=== PATIENT | female | born 1940 | race Caucasian/White ===

== ENCOUNTER 2022-06-10 14:13 | Outpatient (REF) | payer MEDICARE, SELFPAY ==
[2022-06-10 16:28] LABS: MANUAL DIFF FLAG NO
[2022-06-10 17:37] LABS: Basophils Percent Auto 0.4 % (0-2); Eosinophils Absolute Auto 0.1 X10*3/uL (0.0-0.4); Eosinophils Percent Auto 1.1 % (0-4); Hemoglobin 12.4 g/dl (12.0-16.0); Imm Gran Abs Auto 0.02 X10*3/uL (0.00-0.03); Imm Gran Pct Auto 0.3 % (0.0-0.4); Lymphocytes Absolute Auto 1.7 X10*3/uL (1.2-4.9); Mean Corpuscular HGB Conc 31.8 g/dl (31.0-35.0); Monocytes Absolute Auto 0.5 X10*3/uL (0.1-1.2); Monocytes Percent Auto 7.5 % (2-11); Neutrophils Absolute Auto 4.8 x10*3/uL (2.0-8.3); Neutrophils Percent Auto 66.7 % (45-73); Platelet Count 352 X10*3/uL (160-400); Red Blood Count 4.43 X10*6/uL (4.20-5.50); Red Cell Distribution Width 14.6 % (11.0-16.0); White Blood Count 7.2 X10*3/uL (4.8-10.8)
[2022-06-10 18:24] LABS: Erythrocyte Sedimentation Rate 14 MM/HR (0-20)
[2022-06-10 18:36] LABS: Creatinine Urine 51.09 mg/dL; Total Protein Urine Random < 7 mg/dL (<12)
[2022-06-10 18:37] LABS: Alanine Aminotransferase 10 U/L (0-31); Alkaline Phosphatase 95 U/L (39-117); Anion Gap 12 (12-20); Aspartate Amino Transferase 13 U/L (5-31); Bilirubin Total 0.4 mg/dL (0.0-1.0); Blood Urea Nitrogen 18 mg/dL (9-16); C Reactive Protein 0.15 mg/dL (< or = 0.50); Calcium 9.6 mg/dL (8.4-10.2); Carbon Dioxide 31 mmol/L (22-29); Chloride 103 mmol/L (96-108); Estimated Glomerular Filt Rate > 60; Glucose Random 106 mg/dL (60-115); Potassium 4.7 mmol/L (3.3-5.1); Sodium 141 mmol/L (135-145); Total Protein 6.8 g/dL (6.5-8.0)
[2022-06-10 19:01] LABS: Vitamin B12 296 pg/mL (200-900)
[2022-06-12 13:34] LABS: Antibody to SS-A Antigen >8.0 POS AI (<1.0 NEG); Antibody to SS-B Antigen 2.3 POS AI (<1.0 NEG); SM/Ribonucleoprotein Ab <1.0 NEG AI (<1.0 NEG); Smith Protein <1.0 NEG AI (<1.0 NEG)
[2022-06-14 15:08] LABS: Anti Nuclear Antibody Screen POSITIVE (NEGATIVE)
== END 2022-06-10 14:14 | disposition home or self-care (01) ==
LOC: HO.LAB 14:13
PROVIDERS: PCP Internal Medicine; Visit Provider Internal Medicine Rheumatology
DX: H04.123 Dry eye syndrome of bilateral lacrimal glands (principal); M79.671 Pain in right foot; M79.672 Pain in left foot; R68.2 Dry mouth, unspecified; K13.79 Other lesions of oral mucosa
CPT/HCPCS: 36415; 80053; 82607; 84156; 85025; 85652; 86038; 86039; 86140; 86235

== ENCOUNTER 2024-12-24 11:14 | Outpatient (AMB) | payer MEDICARE, SELFPAY ==
--- NOTE | 2024-12-24 11:18 | MHC.OFFVIS ---
Intake Visit Reasons: 6 month RLS Allergies acetaminophen (From Percocet) Allergy (Unknown, Verified 12/24/24 11:23) unknown oxycodone (From Percocet) Allergy (Unknown, Verified 12/24/24 11:23) unknown Medication List - Last Reconciled 12/24/24 by Roslyn Moore CNP aspirin 81 mg PO DAILY calcium carbonate-vitamin D3 600 mg-10 mcg (400 unit) (Calcium 600 + D(3)) 1 tab PO BID dicyclomine 10 mg PO TID gabapentin 100 mg PO DAILY 90 days levothyroxine 75 mcg PO DAILY omeprazole 20 mg PO BID sertraline 50 mg PO DAILY 90 days HPI Comments Details: 84-year-old woman with migraine, anxiety, insomnia, and RLS. She was doing okay. She was recently getting over a cold. RLS symptoms were generally okay. She occasionally got funny feeling in legs, like when sitting in the car for longer periods of time. She was taking gabapentin which helped. Sleep was okay. She was getting few occasional headaches, usually right sided, pressure-type. It could happen with change in weather and rainy weather. She used Tylenol as needed which helped some. Mood was okay. [facility] Medical History (Updated 12/24/24 @ 11:23 by Roslyn Moore CNP) Acid reflux Hypothyroidism (acquired) Left ankle pain Colitis Pain in both feet Surgical History H/O total thyroidectomy H/O: hysterectomy S/P breast lumpectomy Family History Mother No problems noted. Father CHF (congestive heart failure) Social History (Updated 06/10/22 @ 14:42 by GERMAINE Martinez) Household Members: None Alcohol intake: never Patient Tobacco Use Status: Never used Tobacco Current occupational status: retired Review of Systems Const Denies chills, Denies daytime sleepiness, Denies difficulty sleeping, Denies fatigue, Denies fever(s), Denies frequent falls, Reports headache(s), Denies increased appetite, Denies poor appetite, Denies snoring, Denies weakness, Denies weight gain and Denies weight loss Eyes Denies loss of vision ENT Denies vertigo, Denies dizziness, Reports headache(s) and Reports tinnitus Card Denies chest pain at rest, Denies chest pain with activity, Denies syncope, Denies leg edema and Denies palpitations Resp Denies snoring GI Denies constipation, Denies heartburn, Denies diarrhea and Denies nausea Denies urinary frequency, Denies urinary incontinence and Denies urinary urgency Musc Reports abnormal gait (balance difficulty), Denies numbness and Denies tingling Skin/Breast Denies dry skin and Denies rash Neuro Reports abnormal gait (balance difficulty), Denies vertigo, Denies dizziness, Denies syncope, Denies frequent falls, Reports headache(s), Denies lack of coordination, Denies loss of vision, Denies memory loss, Denies numbness, Reports restless legs, Denies seizure-like activity, Denies tingling, Denies paresthesias, Denies tremor(s) and Denies weakness Psych Reports anxiety, Denies depression, Denies auditory hallucinations, Denies memory loss, Denies visual hallucinations and Denies suicidal ideation Endo Denies fatigue and Denies palpitations Physical Exam Const Other: General Appearance:? normal, in no acute distress. Skin:? no rashes, no significant birthmarks. Heart:? S1, S2 normal, no murmurs. Lungs:? clear anteriorly and posteriorly. Extremities:? no edema. Psych:? alert, oriented, cognitive function intact, cooperative with exam. Neuro Other: Mental Status:?Normal attention, orientation, memory and affect.? Cranial Nerves:?Pupils are equal, round and reactive to light. External occular muscles are intact. Visual solis are full. Face is symmetrical. Facial sensations are normal. Tongue is midline. Palate elevates symmetrically. Shoulder shrugging is normal. Hearing to bedside conversation is normal. Sensory Exam:?....? Coordination:?No ataxia,?no titubation.? Gait Exam: Within normal limits. Extrapyramidal System:?No tremor, rigidity with normal facial expressions.? Pronator Drift:?Not present.? Involuntary Movements:?No tremors seen.? Speech:?Normal.? Assessment & Plan Assessment & Plan (1) Restless leg syndrome: Code(s): G25.81 - Restless legs syndrome Category: Medical Plan: Continue gabapentin 100mg 1 capsule at bedtime. (2) Migraine: Code(s): G43.909 - Migraine, unspecified, not intractable, without status migrainosus Category: Medical Qualifiers: Migraine type: unspecified Status migrainosus presence: without status migrainosus Intractability: not intractable Qualified Code(s): G43.909 - Migraine, unspecified, not intractable, without status migrainosus Plan: May continue Tylenol or use Excedrin Migraine as needed. (3) Anxiety: Code(s): F41.9 - Anxiety disorder, unspecified Category: Medical Plan: Continue sertraline 50mg 1 tablet daily. Coding Level of Care Code Est Pt Level 4 (04910) Diagnoses Restless leg syndrome G25.81 Migraine without status migrainosus, not intractable, unspecified migraine type G43.909 Migraine type: unspecified Status migrainosus presence: without status migrainosus Intractability: not intractable Anxiety F41.9
--- OUTSIDE RECORDS SUMMARY | 2024-12-24 13:03 | XMS_ITS | Patient Health Record ---
[facility] Address [address] [place] [address] Care Team Providers Care Correctional Maintenance Technician Name Role Phone Manny CLANCY, Flash Primary Care Provider Clement Grady Unavailable [phone] Allergies Allergen (clinical drug ingredient) Drug/Non Drug Allergy documented on EMR Reaction Allergy Type Onset Date Status acetaminophen / oxycodone Percocet rash Drug Allergy Active Reason For Referral No Information Medications Medication SIG (Take, Route, Fr equency, Duration) Notes Start Date End Date Status Acidophilus Orally Active Lorazepam 1 tab Oral Active Synthroid 75 MCG 1 tablet Orally Once a day 2013 Active Omeprazole 20 MG 1 capsule Orally Once a day 09/08 Active Calcium 600 + D Acti ve Aspirin 81 MG 1 tablet Orally Once a day Active Problems Problem Type SNOMED Code ICD Code Onset Dates Problem Status W/U Status Risk Notes Problem Bursitis (03121557) Bursitis (727.3) Active confirmed Problem Disorder of joint of ankle and/or foot (487371571) Arthritis - Degenerative (719.97) Active confirmed Problem Hallux valgus (740360652) Hallux Valgus (735.0) Active confirmed Problem 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, Congenital (754.61) Active confirmed Problem Myositis (21974496) Myositis (729.1) Active confirmed Problem Pain in limb (97382967) Pain in Limb (729.5) Active confirmed Problem Plantar fasciitis (551792956) Plantar Fasciitis (728.71) Active confirmed Plan Of Treatment Pending Test Test Name Order Date X ray : Foot, left 2V 10/07/2013 X ray : Foot, right 2V 10/07/2013 Insurance Providers Payer Name Payer Address Payer Phone Subscriber Number Group Number Insured Name Patient Relationship to Insured Coverage Start Date Coverage End Date [employer] Preferred [address] [place] [phone] [id number] Isabella Marie Self - patient is the insured Medical (General) History Medical History History ICD Code Back,Hip,and Knee pain Cancer Headaches Reflux Thyroid disorder Surgical History Surgery Date(Month/Year) thyroid surgery 1965 hysterectomy 2007
--- OUTSIDE RECORDS SUMMARY | 2024-12-24 13:03 | XMS_ITS ---
Author Name [facility] Organization Unknown Care Team Organization Name Specialty Phone Email Start Date End [facility] 11/17/2024 [facility] 02/05/2022 11/17/19 24
--- OUTSIDE RECORDS SUMMARY | 2024-12-24 13:03 | XMS_ITS | Clinical Summary ---
Author Organization [address] [facility] Address [address] [place] [address] Phone Care Team Providers Care Independent Video Producer Name Role Phone Pillo Garza MD Primary Care Provider [phone] Allergies Active Allergy Reactions Criticality Noted Date Comments Oxycodone 10/27/2017 Medications gabapentin (NEURONTIN) 300 mg capsule Take 1 capsule (300 mg total) by mouth 1 (one) time each day. 3 Active sertraline (ZOLOFT) 25 mg tablet Take 1 tablet (25 mg total) by mouth 1 (one) time each day. 3 Active ketorolac (ACULAR) 0.5 % ophthalmic solution INSTILL 1 DROP INTO BOTH EYES FOUR TIMES DAILY ON DAY OF INJECTION 1 Active aspirin 81 mg EC tablet Take 81 mg by mouth daily. Active calcium carbonate-vitam in D 600 mg-10 mcg (400 unit) per tablet Take 1 Tab by mouth. Active omeprazole (PriLOSEC) [address] capsule Take 1 capsule (20 mg total) by mouth 2 (two) times a day. 90 capsule 3 5 Active levothyroxine (SYNTHROID, LEVOTHROID) 75 mcg tablet Take 1 tablet (75 mcg total) by mouth 1 (one) time each day. 90 each 1 5 01/17/20 25 Active Active Problems Problem Noted Date Diagnosed Date Acid reflux 03/12/2024 Hypothyroidism (acquired) 03/12/2024 Assessment & Plan (07/20/2024 10:07 AM EDT): Stable on 75 mcg of Levoxyl Orders: CBC and differential; Future Comprehensive metabolic panel; Future Lipid panel with reflex to direct LDL; Future Thyroid stimulating hormone; Future Anxiety 01/11/2022 Assessment & Plan (07/20/2024 10:07 AM EDT): Under control on sertraline Orders: CBC and differential; Future Comprehensive metabolic panel; Future Lipid panel with reflex to direct LDL; Future Thyroid stimulating hormone; Future Pain in both feet 11/19/2018 Colitis 06/08/2018 Left ankle pain 01/29/2018 Immunizations Name Administration Dates Next Due Influenza trivalent, 0.5mL ( Fluad) 65yo and older 01/20/2024,01/17/2023,01/11/2022, 021 Surgical History Surgery Date Site/Laterality Comments HYSTERECTOMY PROCEDURE: HISTORICAL HYSTERECTOMY BREAST LUMPECTOMY Age 56 Left PROCEDURE: HISTORICAL BREAST LUMPECTOMY THYROIDECTOMY PROCEDURE: HISTORICAL TOTAL THYROIDECTOMY Medical History Medical History Date Comments Acid reflux DX:Acid reflux Hypothyroidism (acquired) DX:Hyp othyroidism (acquired) Left ankle pain 01/29/2018 DX:Left ankle pa in Family History Medical History Relation Name Comments Heart failure Father No Known Problems Mother Relation Name Status Comments Father (Age 68) Mother (Age 93) Social History Tobacco Use Types Packs/Day Years Used Date Smoking Tobacco: Never Smokeless Tobacco: Never Alcohol Use Standard Drinks/Week Comments No 0 (1 standard drink = 0.6 oz pur e alcohol) Comments Unknown Sex and Gender Information Value Date Recorded Sex Assigned at Not on file Legal Sex Female 2:43 PM EST Gender Identity Not on file Sexual Orientation Not on file Obstetrics History Last Filed Vital Signs Vital Sign Reading Time Taken Comments Blood Pressure 136/74 07/20/2024 9:07 AM EDT Pulse 73 07/20/2024 9:07 AM EDT Temperature 36.1 C (97 F) 07/20/2024 9:07 AM EDT Respiratory Rate - - Oxygen Saturation 98% 07/20/2024 9:07 AM EDT Inhaled Oxygen Concentration - - Weight 54.1 kg (119 lb 3.2 oz) 07/20/2024 9:07 A M EDT Height 154.9 cm (5' 1 ) 07/20/2024 9:07 AM EDT Body Mass Index 22.52 07/20/2024 9:07 AM EDT Plan of Treatment Upcoming Encounters Date Type Department Care Team (Late st Contact Info) Description 01/19/2025 8:30 AM EDT Office Visit Internal Medicine - [place] [address] [facility] [address] [place] [address] Pillo Garza MD [address] [facility] [address] [place] [address] Health Maintenance Due Date Last Done Comments DTaP,Tdap,and Td Vaccines (1 - Tdap) 1957 Zoster Vaccines (1 of 2) 1988 Osteoporosis Screening (Bone Density Screening) 03/09/2022 Social Influencers of Health Screening 03/09/2022 COVID-19 Vaccine ( season) 2024 08/18/2021, 01/22/2021, 06/02/2020, Additional history exists Influenza Vaccine (#1) 2024 , 01/17/2023, 01/11/2022, Additional history exists Falls Risk Assessment 07/20/2025 07/20/2024 Medicare Annual Wellness Visit 07/20/2025 07/20/2024 Cholesterol Screening (Lipid Panel) 10/14/2029 10/14/2024, 10/06/2023, 10/06/2023 Pneumococcal Vaccine: 50+ Years Completed 01/04/2020, 01/04/2019 RSV Immunization Adult Patients Completed 03/05/2023 Depression Screening Completed 07/20/2024 HIB Vaccines Aged Out No longer eligi ble based on patient's age to complete this topic HPV Vaccines Aged Out No longer eligi ble based on patient's age to complete this topic Hepatitis A Vaccines Aged Out No long er eligible based on patient's age to complete this topic Hepatitis B Vaccines Aged Out No long er eligible based on patient's age to complete this topic IPV Vaccines Aged Out No longer eligi ble based on patient's age to complete this topic MMR Vaccines Aged Out No longer eligi ble based on patient's age to complete this topic Meningococcal ACWY Vaccine Aged Out N o longer eligible based on patient's age to complete this topic Meningococcal B Vaccine Aged Out No l onger eligible based on patient's age to complete this topic RSV Immunization Patients Under 20 months Aged Out No longer eligible based on patient's age to complete this topic Varicella Vaccines Aged Out No longer eligible based on patient's age to complete this topic Procedures Procedure Name Priority Date/Time Associated Diagnosis Comments CBC WITH AUTO DIFFERENTIAL Routine 10/14/2024 8:09 AM EDT Hypothyroidism (acquired) Hypercholesterolem ia Anxiety CBC AND DIFFERENTIAL Routine 10/14/2024 8:09 AM EDT Hypothyroidism (acquired) Hypercholesterolem ia Anxiety COMPREHENSIVE METABOLIC PANEL Routine 10/14/2024 8:09 AM EDT Hypothyroidism (acquired) Hypercholesterolem ia Anxiety LIPID PANEL WITH REFLEX TO DIRECT LDL Routine 10/14/2024 8:09 AM EDT Hypothyroidism (acquired) Hypercholesterolem ia Anxiety THYROID STIMULATING HORMONE Routine 10/14/2024 8:09 AM EDT Hypothyroidism (acquired) Hypercholesterolem ia Anxiety from Last 3 Months Results * (ABNORMAL) Lipid panel with reflex to direct LDL (10/14/2024 8:09 AM EDT) Cholesterol 187 0 - 200 mg/dL LAB CHEMISTRY METHOD 10/14/2024 12:[address] [facility] Triglycerides 103 0 - 150 mg/dL LAB CHEMISTRY METHOD 10/14/2024 12:[address] [facility] HDL 60 >=40 mg/dL LAB CHEMISTRY METHOD 10/14/2024 12:[address] [facility] LDL Calculated 106(H) 0 - 100 mg/dL LAB CHEMISTRY METHOD 10/14/2024 12:[address] [facility] VLDL Cholesterol Cheng 20.6 mg/dL LAB CHEMISTRY METHOD 10/14/2024 12:[address] [facility] Non HDL Chol. (LDL+VLDL) 127 <145 mg/dL LAB CHEMISTRY METHOD 10/14/2024 12:[address] [facility] Chol/HDL Ratio 3.1 0.0 - 4.4 LAB CHEMISTRY METHOD 10/14/2024 12:[address] [facility] Blood Venous blood specimen / Unknown Venipuncture / Unknown 10/14/2024 8:09 AM EDT 10/14/2024 8:09 AM EDT us Pillo Garza MD LAB BLOOD ORDERABLES Final Resul t [facility] [address] [place] [address], * (ABNORMAL) CBC auto differential (10/14/2024 8:09 AM EDT) WBC 6.1 4.8 - 10.8 K/[facility] LAB HEMETOLOGY METHOD 10/14/2024 10:[address] [facility] RBC 4.00 3.80 - 4.80 M/[facility] LAB HEMETOLOGY METHOD 10/14/2024 10:[address] [facility] Hemoglobin 11.5 11.5 - 16.0 g/dL LAB HEMETOLOGY METHOD 10/14/2024 10:[address] [facility] Hematocrit 36.7 35.0 - 47.0 % LAB HEMETOLOGY METHOD 10/14/2024 10:[address] [facility] MCV 92.2 79.0 - 98.0 FL LAB HEMETOLOGY METHOD 10/14/2024 10:[address] [facility] MCH 28.9 27.0 - 32.0 pcg LAB HEMETOLOGY METHOD 10/14/2024 10:[address] [facility] MCHC 31.3(L) 32.0 - 37.0 g/dL LAB HEMETOLOGY METHOD 10/14/2024 10:[address] [facility] RDW 14.2 11.0 - 15.0 % LAB HEMETOLOGY METHOD 10/14[facility]2024 [facility] Platelets 328 130 - 400 K/mcL LAB HEMETOLOGY METHOD 10/14/2024 10:[address] [facility] MPV 10.3 7.0 - 11.0 FL LAB HEMETOLOGY METHOD 10/14/2024 10:[address] [facility] NRBC 0.0 <1.0 % LAB HEMETOLOGY METHOD 10/14/2024 10:[address] [facility] NRBC Absolute 0.00 <0.10 K/mcL LAB HEMETOLOGY METHOD 10/14/2024 10:[address] [facility] Neutrophils Relative 59.8 % LAB HEMETOLOGY METHOD 10/14/2024 10:[address] [facility] Lymphocytes Relative 28.0 % LAB HEMETOLOGY METHOD 10/14/2024 10:[address] [facility] Monocytes Relative 7.9 % LAB HEMETOLOGY METHOD 10/14/2024 10:[address] [facility] Eosinophils Relative 3.1 % LAB HEMETOLOGY METHOD 10/14/2024 10:[address] [facility] Basophils Relative 0.7 % LAB HEMETOLOGY METHOD 10/14/2024 10:[address] [facility] Immature Granulocytes Relative 0.5 % LAB HEMETOLOGY METHOD 10/14/2024 10:[address] [facility] Neutrophils Absolute 3.66 1.50 - 7.00 K/mcL LAB HEMETOLOGY METHOD 10/14/2024 10:[address] [facility] Lymphocytes Absolute 1.71 1.00 - 5.00 K/mcL LAB HEMETOLOGY METHOD 10/14/2024 10:[address] [facility] Monocytes Absolute 0.48 0.20 - 1.00 K/mcL LAB HEMETOLOGY METHOD 10/14/2024 10:[address] [facility] Eosinophils Absolute 0.19 0.00 - 0.50 K/mcL LAB HEMETOLOGY METHOD 10/14/2024 10:[address] [facility] Basophils Absolute 0.04 0.00 - 0.20 K/[facility] LAB HEMETOLOGY METHOD 10/14/2024 10:[address] [facility] Immature Granulocytes Absolute 0.03 0.00 - 0.03 K/[facility] LAB HEMETOLOGY METHOD 10/14/2024 10:[address] [facility] Blood Venous blood specimen / Unknown Venipuncture / Unknown 10/14/2024 8:09 AM EDT 10/14/2024 8:09 AM EDT us Pillo aGrza MD LAB BLOOD ORDERABLES Final Resul t Performing Organization Address City/[facility]/ZIP Co de Phone Number [facility] [address] [place] [address], [place] [phone] * Thyroid stimulating hormone (10/14/2024 8:09 AM EDT) TSH 1.86 0.40 - 4.00 mcIU/mL LAB CHEMISTRY METHOD 10/14/2024 1:[address] [facility] Blood Venous blood specimen / Unknown Venipuncture / Unknown 10/14/2024 8:09 AM EDT 10/14/2024 8:09 AM EDT us Pillo Garza MD LAB BLOOD ORDERABLES Final Resul t [facility] [address] [place] [address], [place] [phone] * Comprehensive metabolic panel (10/14/2024 8:09 AM EDT) Sodium 139 133 - 145 mmol/L LAB CHEMISTRY METHOD 10/14/2024 12:[address] [facility] Potassium 4.3 3.5 - 5.5 mmol/L LAB CHEMISTRY METHOD 10/14/2024 12:[address] [facility] Chloride 104 96 - 110 mmol/L LAB CHEMISTRY METHOD 10/14/2024 12:[address] [facility] CO2 29 21 - 32 mmol/L LAB CHEMISTRY METHOD 10/14/2024 12:[address] [facility] Anion Gap 6 3 - 11 LAB CHEMISTRY METHOD 10/14/2024 12:[address] [facility] Glucose 90 70 - 100 mg/dL LAB CHEMISTRY METHOD 10/14/2024 12:[address] [facility] BUN 14 5 - 25 mg/dL LAB CHEMISTRY METHOD 10/14/2024 12:[address] [facility] Creatinine 0.76 0.50 - 1.10 mg/dL LAB CHEMISTRY METHOD 10/14/2024 12:[address] [facility] eGFR 76 >=60 mL/min/1. 73m2 LAB CHEMISTRY METHOD 10/14/2024 12:[address] [facility] Comment:Calculation based on the Chronic Kidney Disease Epidemiology Collaboration (CKD-EPI) equation refit without adjustment for race. BUN/Creatinine Ratio 18.4 LAB CHEMISTRY METHOD 10/14/2024 12:[address] [facility] Calcium 9.1 8.5 - 10.5 mg/dL LAB CHEMISTRY METHOD 10/14/2024 12:[address] [facility] AST (SGOT) 14 10 - 42 unit/L LAB CHEMISTRY METHOD 10/14/2024 12:[address] [facility] ALT (SGPT) 15 10 - 60 unit/L LAB CHEMISTRY METHOD 10/14/2024 12:[address] [facility] Alkaline Phosphatase 105 42 - 121 unit/L LAB CHEMISTRY METHOD 10/14/2024 12:[address] [facility] Total Protein 7.1 6.0 - 8.0 g/dL LAB CHEMISTRY METHOD 10/14/2024 12:[address] [facility] Albumin 3.9 3.2 - 5.0 g/dL LAB CHEMISTRY METHOD 10/14/2024 12:[address] [facility] Total Bilirubin 0.7 0.0 - 1.4 mg/dL LAB CHEMISTRY METHOD 10/14/2024 12:[address] [facility] Blood Venous blood specimen / Unknown Venipuncture / Unknown 10/14/2024 8:09 AM EDT 10/14/2024 8:09 AM EDT us Pillo Garza MD LAB BLOOD ORDERABLES Final Resul t [facility] [address] [place] [address], from Last 3 Months Insurance [employer] Care Teams Independent Video Producer Relationship Specialty Start Date End Date Pillo Garza MD [address] [address] PCP - General Internal Medicine 05/04/18
== END 2024-12-24 11:36 | disposition home or self-care (01) ==
LOC: HO.HSM 11:15
PROVIDERS: PCP Internal Medicine; Referring Provider Internal Medicine; Visit Provider Registered Nurse
DX: G25.81 Restless legs syndrome (principal); G43.909 Migraine, unspecified, not intractable, without status migrainosus; F41.9 Anxiety disorder, unspecified
CPT/HCPCS: 99214

== ENCOUNTER → 2024-12-24 11:14 | Outpatient (BNVA) | payer MEDICARE, SELFPAY | PROVIDERS: PCP Internal Medicine; Referring Provider Internal Medicine; Visit Provider Registered Nurse | DX: G25.81 Restless legs syndrome (principal); G43.909 Migraine, unspecified, not intractable, without status migrainosus; F41.9 Anxiety disorder, unspecified; Z79.82 Long term (current) use of aspirin; Z79.890 Hormone replacement therapy; Z79.899 Other long term (current) drug therapy | CPT/HCPCS: 99212 ==